=== PATIENT | female | born 1955 | race Caucasian/White ===

== ENCOUNTER → 2019-10-20 | Outpatient (CLI) | payer BC | END | disposition home or self-care (01) | LOC: CFH 07:30 | PROVIDERS: ATTEND Internal Medicine Cardiovascular Disease | DX: I25.89 Other forms of chronic ischemic heart disease (principal); Z82.49 Family history of ischemic heart disease and other diseases of the circulatory system | CPT/HCPCS: 78452; 93017; 93306; A9502 ==

== ENCOUNTER 2019-11-25 09:49 | Day surgery (SDC) | payer BC ==
[~2019-11-25] VITALS: Ht 165.1 cm; Wt 84.8 kg
[2019-11-25] MEDS ORDERED: SODIUM CHLORIDE 0.9% 1,000 ML IV ONE (10:30)
[2019-11-25] MEDS ORDERED: TRAZ-175 PO (10:38)
[2019-11-25] MEDS ORDERED: LORA-445 PO (10:39)
[2019-11-25] MEDS ORDERED: ESCI20TA10 PO (10:41)
[2019-11-25] MEDS ORDERED: PROG200C10 PO (10:42)
[2019-11-25] MEDS ORDERED: MONT10TA6 PO (10:42)
[2019-11-25] MEDS ORDERED: BRIO INHALER (10:43)
[2019-11-25] MEDS ORDERED: TIOT4MIS5 INH (10:45)
[2019-11-25] MEDS ORDERED: ALBU8.5H8 INH (10:46)
[2019-11-25 10:52] VITALS: BP 106/68
[2019-11-25 10:57] LABS: ANION GAP 4 mmol/L (5-15); CHLORIDE 110 mmol/L (98-107); CREATININE 0.76 mg/dL (0.55-1.02)
[2019-11-25 11:06] LABS: BASOPHILS # (AUTO) 0.05 x10^3/uL (0-0.1); BASOPHILS % (AUTO) 1 % (0-1); EOSINOPHILS # (AUTO) 0.07 x10^3/uL (0-0.4); EOSINOPHILS % (AUTO) 1 % (1-7); LYMPHOCYTES # (AUTO) 1.49 x10^3/uL (1-3.4); LYMPHOCYTES % (AUTO) 30 % (22-44); MD NO; MEAN CORPUSCULAR HEMOGLOBIN 30.6 pg (27.0-34.8); MEAN CORPUSCULAR HGB CONC 33.3 g/dL (32.4-35.8); MEAN CORPUSCULAR VOLUME 92.2 fL (80-100); MEAN PLATELET VOLUME 8.3 fL (7.4-10.4); MONOCYTES % (AUTO) 6 % (2-9); NEUTROPHILS # (AUTO) 3.13 x10^3/uL (1.8-6.8); NEUTROPHILS % (AUTO) 62 % (42-75); PLATELET COUNT 308 x10^3/uL (130-400); RED BLOOD COUNT 4.71 x10^6/uL (3.82-5.3); RED CELL DISTRIBUTION WIDTH 13.8 % (9.6-15.2)
[2019-11-25] MEDS ORDERED: MIDAZOLAM 1 MG/ML, 2ML ONE (12:41)
[2019-11-25] MEDS ORDERED: LIDOCAINE 1%, 20ML ONE (12:42)
[2019-11-25] MEDS ORDERED: FENTANYL PF 100 MCG/2ML ONE (12:42)
[2019-11-25] MEDS ORDERED: PROPOFOL 10 MG/ML, 50ML ONE (13:08)
[2019-11-25] MEDS ORDERED: PROPOFOL 10 MG/ML, 20ML ONE (13:08)
[2019-11-25] MEDS ORDERED: ONDANSETRON 2MG/ML, 2ML ONE (14:35)
[2019-11-25] MEDS ORDERED: ONDANSETRON 2MG/ML, 2ML IVPush ONE (15:00)
== END 2019-11-25 16:34 | disposition home or self-care (01) ==
LOC: CACL 09:49
PROVIDERS: ATTEND Internal Medicine Cardiovascular Disease
DX: R93.1 Abnormal findings on diagnostic imaging of heart and coronary circulation (principal); Z11.59 Encounter for screening for other viral diseases; I34.0 Nonrheumatic mitral (valve) insufficiency; F41.9 Anxiety disorder, unspecified; F32.9 Major depressive disorder, single episode, unspecified; J45.40 Moderate persistent asthma, uncomplicated; E66.9 Obesity, unspecified; G47.30 Sleep apnea, unspecified; Z98.51 Tubal ligation status; Z98.890 Other specified postprocedural states; Z88.0 Allergy status to penicillin; Z88.1 Allergy status to other antibiotic agents; Z79.899 Other long term (current) drug therapy; Z82.49 Family history of ischemic heart disease and other diseases of the circulatory system; Z68.31 Body mass index [BMI] 31.0-31.9, adult
CPT/HCPCS: 36415; 80048; 85025; 87635; 93312; 93321; 93325; 93458; C1760; C1769; C1894; J2250; J2405; J2704; J3010; Q9967

== ENCOUNTER 2020-02-12 04:28 | Inpatient (IN) | payer BC ==
[2020-02-11 14:07] LABS: BASOPHILS # (AUTO) 0.07 x10^3/uL (0-0.1); BASOPHILS % (AUTO) 1 % (0-1); EOSINOPHILS # (AUTO) 0.12 x10^3/uL (0-0.4); EOSINOPHILS % (AUTO) 2 % (1-7); LYMPHOCYTES # (AUTO) 1.79 x10^3/uL (1-3.4); LYMPHOCYTES % (AUTO) 28 % (22-44); MD NO; MEAN CORPUSCULAR HGB CONC 32.1 g/dL (32.4-35.8); MEAN CORPUSCULAR VOLUME 93.5 fL (80-100); MEAN PLATELET VOLUME 7.8 fL (7.4-10.4); MONOCYTES # (AUTO) 0.46 x10^3/uL (0.2-0.8); MONOCYTES % (AUTO) 7 % (2-9); NEUTROPHILS # (AUTO) 3.92 x10^3/uL (1.8-6.8); NEUTROPHILS % (AUTO) 62 % (42-75); PLATELET COUNT 308 x10^3/uL (130-400); RED CELL DISTRIBUTION WIDTH 14.2 % (9.6-15.2)
[2020-02-11 14:15] LABS: INTERNATIONAL NORMALIZED RATIO 0.94 (0.93-1.1); PROTHROMBIN TIME 9.7 Seconds (9.6-11.5)
[2020-02-11 14:16] LABS: ALANINE AMINOTRANSFERASE 28 U/L (12-78); ALBUMIN 3.7 g/dL (3.4-5.0); ANION GAP 6 mmol/L (5-15); CALCIUM 8.7 mg/dL (8.5-10.1); CHLORIDE 108 mmol/L (98-107)
[2020-02-11 14:19] LABS: ALKALINE PHOSPHATASE 76 U/L (45-117); BILIRUBIN,TOTAL 1.1 mg/dL (0.2-1.0); TOTAL PROTEIN 6.6 g/dL (6.4-8.2)
[2020-02-11 15:10] LABS: MICROSCOPIC NOT IND
[~2020-02-12] VITALS: Ht 165.1 cm; Wt 92.7 kg
[~2020-02-12 04:28] MED LIST: ALBU8.5H8 INH; BRIO INHALER; C,E,1CAP PO; ESCI20TA10 PO; FLUT1BLS INH; LACT1CAP5 PO; LIFE PO; LORA-439 PO; LORA-445 PO; MAGN100T PO; MONT10TA6 PO; PROG200C10 PO; TIOT4MIS5 INH; TRAZ-175 PO; [UNRECOGNIZED DRUG - OTHER] PO
[2020-02-12 04:55] VITALS: BP_SYST 116; BP_SYST 121; BP_DIAS 74; BP_DIAS 81
[2020-02-12] MEDS ORDERED: INSULIN LISPRO 100 UNITS/ML, PEN SQ-INSULIN SCH (05:00)
[2020-02-12] MEDS ORDERED: DO NOT GIVE MC SCH (05:00)
[2020-02-12] MEDS ORDERED: CHLORHEXIDINE 15 ML UDC MM PRN (05:00)
[2020-02-12] MEDS: MUPIROCIN OINT 2%, 22GM TP SCH ×2 (05:35→20:30)
[2020-02-12] MEDS ORDERED: FENTANYL PF 250 MCG/5ML ONE ×4 (07:04)
[2020-02-12] MEDS ORDERED: MIDAZOLAM 10MG/2 ML ONE (07:04)
[2020-02-12] MEDS ORDERED: PHENYLEPHRINE 50 MG in SODIUM CHLORIDE 0.9% 245 ML IV PRN ×2 (07:30→10:56)
[2020-02-12] MEDS ORDERED: ALBUMIN HUMAN 5% 500 ML IV PRN (07:30)
[2020-02-12] MEDS ORDERED: VANCOMYCIN 1,200 MG in SODIUM CHLORIDE 0.9% 250 ML IV PRN (07:30)
[2020-02-12] MEDS ORDERED: MANNITOL PMX 20% 500 ML IVPB PRN (07:30)
[2020-02-12] MEDS ORDERED: REGULAR INSULIN 100 UNITS in SODIUM CHLORIDE 0.9% 99 ML IV PRN ×2 (07:30→10:56)
[2020-02-12] MEDS ORDERED: POTASSIUM CHLORIDE 80 MEQ, SODIUM BICARBONATE 8.4% 10 MEQ, MAGNESIUM SULFATE 0.5 GM, LI... IV PRN (07:30)
[2020-02-12] MEDS ORDERED: EPINEPHRINE 5 MG in SODIUM CHLORIDE 0.9% 245 ML IV PRN ×2 (07:30→11:00)
[2020-02-12] MEDS ORDERED: DEXMEDETOMIDINE 200 MCG in SODIUM CHLORIDE 0.9% 48 ML IV PRN ×2 (07:30→10:56)
[2020-02-12] MEDS ORDERED: AMINOCAPROIC ACID 250 MG/ML, 20ML ONE ×2 (08:41)
[2020-02-12] MEDS ORDERED: PROTAMINE SULFATE 10 MG/ML, 25ML ONE ×2 (08:41)
[2020-02-12] MEDS ORDERED: PROPOFOL 10 MG/ML, 20ML ONE (08:41)
[2020-02-12] MEDS ORDERED: ROCURONIUM 10MG/ML,5ML ONE ×2 (08:41)
[2020-02-12] MEDS: SODIUM CHLORIDE FLUSH 10ML SYR IVF SCH ×3 (09:00→20:26)
[2020-02-12] MEDS ORDERED: ALBUMIN HUMAN 25% 50 ML ONE (10:27)
[2020-02-12] MEDS ORDERED: methylPREDNISolone SOD SUCC 125 MG/2 ML ONE (10:27)
[2020-02-12] MEDS ORDERED: SODIUM BICARBONATE 1 MEQ/ML, 50ML VIAL ONE (10:27)
[2020-02-12] MEDS ORDERED: HEPARIN 1,000 UNITS/ML, 30ML ONE (10:27)
[2020-02-12 10:45] LABS: GLUCOSE BY BLOOD GAS ANALYZER 131 mg/dL (70-110); HEMOGLOBIN BY BLOOD GAS ANALYZ 12.6 g/dL (14.0-18.0); POTASSIUM BY BLOOD GAS ANALYZR 3.4 mmol/L (3.6-5.5)
[2020-02-12] MEDS ORDERED: DOBUTAMINE 250 MG in SODIUM CHLORIDE 0.9% 230 ML IV PRN (10:56)
[2020-02-12] MEDS ORDERED: NITROGLYCERIN/D5W PMX 250 ML IV PRN (10:56)
[2020-02-12] MEDS ORDERED: SODIUM CHLORIDE 0.9% 1,000 ML IV PRN (10:56)
[2020-02-12] MEDS ORDERED: VASOPRESSIN 20 UNIT in SODIUM CHLORIDE 0.9% 99 ML IV PRN (10:56)
[2020-02-12 10:57] LABS: INTERNATIONAL NORMALIZED RATIO 1.12 (0.93-1.1); PROTHROMBIN TIME 11.6 Seconds (9.6-11.5)
[2020-02-12] MEDS ORDERED: DEXTROSE 50%, 50ML SYRINGE IVPush PRN (11:00)
[2020-02-12] MEDS ORDERED: INSULIN REGULAR 100 UNITS/ML, 3ML VIAL IVPush PRN (11:00)
[2020-02-12] MEDS ORDERED: ONDANSETRON 2MG/ML, 2ML IVPush PRN (11:00)
[2020-02-12] MEDS ORDERED: ACETAMINOPHEN 650 MG SUPP PR PRN (11:00)
[2020-02-12] MEDS ORDERED: BISACODYL 10 MG SUPP PR PRN (11:00)
[2020-02-12] MEDS ORDERED: SODIUM BICARB 8.4%, 50ML SYRINGE IV PRN (11:00)
[2020-02-12] MEDS ORDERED: morphine SULFATE 10 MG/ML, 1ML IVPush PRN (11:00)
[2020-02-12] MEDS ORDERED: GLUCAGON 1 MG IM PRN (11:00)
[2020-02-12] MEDS ORDERED: PROCHLORPERAZINE 5 MG/ML, 2ML IVPush PRN (11:00)
[2020-02-12] MEDS ORDERED: BISACODYL 5 MG EC TABLET PO PRN (11:00)
[2020-02-12] MEDS ORDERED: DEXTROSE 4 GM TAB.CHEW PO PRN (11:00)
[2020-02-12] MEDS ORDERED: MIDAZOLAM 1 MG/ML, 5ML IVPush PRN (11:00)
[2020-02-12] MEDS: DOCUSATE 100 MG CAPSULE PO SCH ×2 (11:26→20:30)
[2020-02-12] MEDS: INSULIN LISPRO 100 UNITS/ML, PEN SQ-INSULIN SCH ×3 (11:26→20:47)
[2020-02-12] MEDS: LACTATED RINGERS 1,000 ML IV PRN ×2 (11:32→15:41)
[2020-02-12] MEDS: MAGNESIUM SULFATE 1 GM in SODIUM CHLORIDE 0.9% 100 ML IVPB SCH (11:39)
[2020-02-12] MEDS ORDERED: POTASSIUM CHLORIDE 30 MEQ in SODIUM CHLORIDE 0.9% 100 ML IV ONE (12:30)
[2020-02-12] MEDS: KSCALE TO 4.5 IV SCH ×3 (12:43→23:00)
[2020-02-12] MEDS: OXYcodone IR 5MG TABLET PO PRN ×3 (15:29→22:37)
[2020-02-12] MEDS ORDERED: LACTATED RINGERS 1,000 ML IVBOLUS ONE (16:30)
[2020-02-12] MEDS ORDERED: ALBUMIN HUMAN 5% 500 ML IV ONE (16:30)
[2020-02-12 17:21] LABS: ANION GAP 6 mmol/L (5-15); CHLORIDE 118 mmol/L (98-107); CREATININE 0.62 mg/dL (0.55-1.02)
[2020-02-12 17:23] LABS: CALCIUM 7.4 mg/dL (8.5-10.1)
[2020-02-12] MEDS ORDERED: KETOROLAC 30 MG/1 ML IVPush PRN (18:00)
[2020-02-12] MEDS: HYDROcodone/APAP 5/325 TABLET PO PRN (18:30)
[2020-02-12] MEDS: VANCOMYCIN 1,300 MG in SODIUM CHLORIDE 0.9% 250 ML IVPB SCH (20:04)
[2020-02-12] MEDS: TRAZODONE 100MG TABLET PO SCH (20:29)
[2020-02-12] MEDS: ACETAMINOPHEN 325 MG TABLET PO PRN (20:29)
[2020-02-12] MEDS: LORazepam 0.5MG TABLET PO PRN (20:29)
[2020-02-13] MEDS: HYDROcodone/APAP 5/325 TABLET PO PRN ×4 (01:00→21:06)
[2020-02-13] MEDS: OXYcodone IR 5MG TABLET PO PRN ×4 (03:54→22:56)
[2020-02-13 04:00] VITALS: BP 92/51
[2020-02-13] MEDS: LORazepam 0.5MG TABLET PO PRN ×3 (04:14→20:44)
[2020-02-13 04:42] LABS: ALBUMIN 3.4 g/dL (3.4-5.0); ANION GAP 4 mmol/L (5-15); CHLORIDE 113 mmol/L (98-107)
[2020-02-13] MEDS: KSCALE TO 4.5 IV SCH (04:55)
[2020-02-13 06:17] LABS: MEAN CORPUSCULAR HEMOGLOBIN 30.1 pg (27.0-34.8); MEAN CORPUSCULAR HGB CONC 32.1 g/dL (32.4-35.8); MEAN CORPUSCULAR VOLUME 93.6 fL (80-100); MEAN PLATELET VOLUME 8.3 fL (7.4-10.4); PLATELET COUNT 247 x10^3/uL (130-400); RED BLOOD COUNT 3.71 x10^6/uL (3.82-5.3); RED CELL DISTRIBUTION WIDTH 14.5 % (9.6-15.2)
[2020-02-13] MEDS: INSULIN LISPRO 100 UNITS/ML, PEN SQ-INSULIN SCH ×4 (07:00→20:43)
[2020-02-13] MEDS ORDERED: KETOROLAC 30 MG/1 ML ONE (07:51)
[2020-02-13] MEDS ORDERED: KETOROLAC 30 MG/1 ML IM SCH (08:00)
[2020-02-13 08:01] LABS: MD YES
[2020-02-13 08:02] LABS: BAND#(MANUAL) 0.15 x10^3/uL; BANDS%(MANUAL) 1 % (0-7); LYMPH#(MANUAL) 0.46 x10^3/uL (1-3.4); LYMPHS% (MANUAL) 3 % (22-44); METAMYELOCYTES# (MANUAL) 0.15 x10^3/uL (0-0); METAMYELOCYTES% (MANUAL) 1 % (0-1); MONOS#(MANUAL) 1.08 x10^3/uL (0.3-2.7); MONOS% (MANUAL) 7 % (2-9); SEG#(MANUAL) 13.55 x10^3/uL (1.8-6.8); SEGS% (MANUAL) 88 % (42-75)
[2020-02-13 08:03] LABS: <PLATELET ESTIMATE> ADEQUATE; <PLT MORPHOLOGY> NORMAL PLT MORPH; <RBC MORPHOLOGY> NORMAL
[2020-02-13] MEDS: KETOROLAC 30 MG/1 ML IV SCH ×2 (08:47→18:39)
[2020-02-13] MEDS: MUPIROCIN OINT 2%, 22GM TP SCH ×2 (08:49→20:43)
[2020-02-13] MEDS: SODIUM CHLORIDE FLUSH 10ML SYR IVF SCH ×4 (08:49→20:43)
[2020-02-13] MEDS: MUPIROCIN OINT 2%, 22GM NAS SCH ×2 (08:49→20:43)
[2020-02-13] MEDS: VANCOMYCIN 1,300 MG in SODIUM CHLORIDE 0.9% 250 ML IVPB SCH (08:49)
[2020-02-13] MEDS: WARFARIN BIOPROSTHETIC VALVE PROTOCOL 2-3 XX SCH (09:00)
[2020-02-13] MEDS ORDERED: LORazepam 1MG TABLET ONE ×2 (10:33→20:36)
[2020-02-13] MEDS: DOCUSATE 100 MG CAPSULE PO SCH ×2 (10:41→20:44)
[2020-02-13] MEDS: ASPIRIN 81 MG TABLET EC PO SCH (10:41)
[2020-02-13] MEDS: LIDODERM 5% PATCH TD SCH (10:42)
[2020-02-13 11:06] LABS: INTERNATIONAL NORMALIZED RATIO 1.04 (0.93-1.1); PROTHROMBIN TIME 10.7 Seconds (9.6-11.5)
[2020-02-13] MEDS: MAGNESIUM SULFATE 1 GM in SODIUM CHLORIDE 0.9% 100 ML IVPB SCH (12:31)
[2020-02-13] MEDS: ACETAMINOPHEN 325 MG TABLET PO PRN (17:57)
[2020-02-13] MEDS ORDERED: WARFARIN 5 MG TABLET PO-COUM SCH (18:00)
[2020-02-13] MEDS ORDERED: LACTATED RINGERS 500 ML IVBOLUS ONE (20:00)
[2020-02-13] MEDS: CHLORHEXIDINE 15 ML UDC MM SCH (20:43)
[2020-02-13] MEDS: TRAZODONE 100MG TABLET PO SCH (20:44)
[2020-02-14] MEDS: KETOROLAC 30 MG/1 ML IV SCH ×4 (01:07→21:45)
[2020-02-14 04:00] VITALS: BP 99/50
[2020-02-14] MEDS: HYDROcodone/APAP 5/325 TABLET PO PRN ×2 (04:03→16:08)
[2020-02-14 04:19] LABS: INTERNATIONAL NORMALIZED RATIO 0.97 (0.93-1.1)
[2020-02-14 04:20] LABS: ANION GAP 6 mmol/L (5-15); CALCIUM 7.8 mg/dL (8.5-10.1); CHLORIDE 106 mmol/L (98-107); CREATININE 0.69 mg/dL (0.55-1.02)
[2020-02-14 04:34] LABS: BASOPHILS # (AUTO) 0.02 x10^3/uL (0-0.1); BASOPHILS % (AUTO) 0 % (0-1); EOSINOPHILS # (AUTO) 0.13 x10^3/uL (0-0.4); EOSINOPHILS % (AUTO) 1 % (1-7); LYMPHOCYTES # (AUTO) 1.12 x10^3/uL (1-3.4); LYMPHOCYTES % (AUTO) 11 % (22-44); MD NO; MEAN CORPUSCULAR HEMOGLOBIN 30.6 pg (27.0-34.8); MEAN CORPUSCULAR HGB CONC 33.1 g/dL (32.4-35.8); MEAN CORPUSCULAR VOLUME 92.5 fL (80-100); MONOCYTES # (AUTO) 0.66 x10^3/uL (0.2-0.8); MONOCYTES % (AUTO) 7 % (2-9); NEUTROPHILS # (AUTO) 7.95 x10^3/uL (1.8-6.8); NEUTROPHILS % (AUTO) 80 % (42-75); PLATELET COUNT 156 x10^3/uL (130-400); RED BLOOD COUNT 3.32 x10^6/uL (3.82-5.3); RED CELL DISTRIBUTION WIDTH 14.7 % (9.6-15.2)
[2020-02-14] MEDS: INSULIN LISPRO 100 UNITS/ML, PEN SQ-INSULIN SCH ×4 (07:00→21:37)
[2020-02-14] MEDS: LIDODERM 5% PATCH TD SCH (08:30)
[2020-02-14] MEDS ORDERED: LORazepam 1MG TABLET ONE (08:37)
[2020-02-14] MEDS: DOCUSATE 100 MG CAPSULE PO SCH ×2 (08:39→21:47)
[2020-02-14] MEDS: CHLORHEXIDINE 15 ML UDC MM SCH ×2 (08:39→21:52)
[2020-02-14] MEDS: SODIUM CHLORIDE FLUSH 10ML SYR IVF SCH ×4 (08:39→21:46)
[2020-02-14] MEDS: POTASSIUM CHLORIDE 20 MEQ TAB.ER.PRT PO SCH (08:39)
[2020-02-14] MEDS: ASPIRIN 81 MG TABLET EC PO SCH (08:39)
[2020-02-14] MEDS: MUPIROCIN OINT 2%, 22GM NAS SCH ×2 (08:44→21:52)
[2020-02-14] MEDS: FUROSEMIDE 40 MG/4 ML IV SCH (08:44)
[2020-02-14] MEDS: MUPIROCIN OINT 2%, 22GM TP SCH ×2 (08:44→21:52)
[2020-02-14] MEDS: LORazepam 0.5MG TABLET PO PRN (08:45)
[2020-02-14] MEDS: WARFARIN BIOPROSTHETIC VALVE PROTOCOL 2-3 XX SCH (09:00)
[2020-02-14] MEDS: DIPHENHYDRAMINE 25 MG CAPSULE PO PRN ×2 (09:56→21:52)
[2020-02-14] MEDS: WARFARIN MODERAT DOSE PROTOCOL XX SCH (12:00)
[2020-02-14] MEDS ORDERED: MAGNESIUM SULFATE PMX 2GM/50ML 0 ML ONE (12:07)
[2020-02-14] MEDS: MAGNESIUM SULFATE 1 GM in SODIUM CHLORIDE 0.9% 100 ML IVPB SCH (12:47)
[2020-02-14 15:44] VITALS: BP 91/59
[2020-02-14 16:09] VITALS: BP 100/67
[2020-02-14] MEDS ORDERED: WARFARIN 7.5 MG TABLET PO-COUM SCH (18:00)
[2020-02-14 18:29] VITALS: BP 82/57
[2020-02-14] MEDS: OXYcodone IR 5MG TABLET PO PRN (18:44)
[2020-02-14] MEDS: TRAZODONE 100MG TABLET PO SCH (21:46)
[2020-02-14] MEDS: ESCITALOPRAM 10MG TABLET PO SCH (21:46)
[2020-02-15 02:43] VITALS: BP 100/67
[2020-02-15] MEDS: KETOROLAC 30 MG/1 ML IV SCH ×4 (02:46→20:20)
[2020-02-15 03:25] LABS: BASOPHILS # (AUTO) 0.03 x10^3/uL (0-0.1); BASOPHILS % (AUTO) 1 % (0-1); EOSINOPHILS # (AUTO) 0.13 x10^3/uL (0-0.4); EOSINOPHILS % (AUTO) 2 % (1-7); LYMPHOCYTES # (AUTO) 1.27 x10^3/uL (1-3.4); LYMPHOCYTES % (AUTO) 18 % (22-44); MD NO; MEAN CORPUSCULAR HEMOGLOBIN 30.1 pg (27.0-34.8); MEAN CORPUSCULAR HGB CONC 32.4 g/dL (32.4-35.8); MEAN CORPUSCULAR VOLUME 92.9 fL (80-100); MEAN PLATELET VOLUME 8.1 fL (7.4-10.4); MONOCYTES # (AUTO) 0.52 x10^3/uL (0.2-0.8); MONOCYTES % (AUTO) 8 % (2-9); NEUTROPHILS # (AUTO) 4.94 x10^3/uL (1.8-6.8); NEUTROPHILS % (AUTO) 72 % (42-75); PLATELET COUNT 162 x10^3/uL (130-400); PROTHROMBIN TIME 10.3 Seconds (9.6-11.5); RED BLOOD COUNT 3.27 x10^6/uL (3.82-5.3); RED CELL DISTRIBUTION WIDTH 14.4 % (9.6-15.2)
[2020-02-15 03:27] LABS: ANION GAP 5 mmol/L (5-15); CHLORIDE 109 mmol/L (98-107); CREATININE 0.62 mg/dL (0.55-1.02)
[2020-02-15] MEDS: LORazepam 0.5MG TABLET PO PRN ×2 (03:27→20:20)
[2020-02-15 06:45] VITALS: BP 102/69
[2020-02-15] MEDS: INSULIN LISPRO 100 UNITS/ML, PEN SQ-INSULIN SCH (08:35)
[2020-02-15] MEDS: FUROSEMIDE 40 MG/4 ML IV SCH (08:36)
[2020-02-15] MEDS: CHLORHEXIDINE 15 ML UDC MM SCH (08:36)
[2020-02-15] MEDS: MUPIROCIN OINT 2%, 22GM TP SCH ×2 (08:37→20:21)
[2020-02-15] MEDS: WARFARIN BIOPROSTHETIC VALVE PROTOCOL 2-3 XX SCH (08:38)
[2020-02-15] MEDS: ASPIRIN 81 MG TABLET EC PO SCH (08:41)
[2020-02-15] MEDS: DOCUSATE 100 MG CAPSULE PO SCH ×2 (08:41→20:20)
[2020-02-15] MEDS: POTASSIUM CHLORIDE 20 MEQ TAB.ER.PRT PO SCH (08:41)
[2020-02-15] MEDS: MUPIROCIN OINT 2%, 22GM NAS SCH ×2 (08:42→20:04)
[2020-02-15] MEDS: SODIUM CHLORIDE FLUSH 10ML SYR IVF SCH ×4 (08:42→20:20)
[2020-02-15] MEDS: LIDODERM 5% PATCH TD SCH (08:46)
[2020-02-15] MEDS: HYDROcodone/APAP 5/325 TABLET PO PRN ×2 (09:54→17:30)
[2020-02-15] MEDS: WARFARIN MODERAT DOSE PROTOCOL XX SCH (12:38)
[2020-02-15] MEDS: OXYcodone IR 5MG TABLET PO PRN (12:40)
[2020-02-15 12:53] VITALS: BP 101/70
[2020-02-15] MEDS ORDERED: WARFARIN 7.5 MG TABLET PO-COUM ONE (18:00)
[2020-02-15 19:42] VITALS: BP 120/77
[2020-02-15] MEDS: ESCITALOPRAM 10MG TABLET PO SCH (20:20)
[2020-02-15] MEDS: TRAZODONE 100MG TABLET PO SCH (20:21)
[2020-02-16 00:44] VITALS: BP 104/67
[2020-02-16] MEDS: KETOROLAC 30 MG/1 ML IV SCH ×4 (02:56→19:54)
[2020-02-16 03:31] LABS: BASOPHILS # (AUTO) 0.04 x10^3/uL (0-0.1); BASOPHILS % (AUTO) 1 % (0-1); EOSINOPHILS # (AUTO) 0.18 x10^3/uL (0-0.4); EOSINOPHILS % (AUTO) 3 % (1-7); LYMPHOCYTES # (AUTO) 1.35 x10^3/uL (1-3.4); LYMPHOCYTES % (AUTO) 24 % (22-44); MD NO; MEAN CORPUSCULAR HEMOGLOBIN 30.8 pg (27.0-34.8); MEAN CORPUSCULAR HGB CONC 33.5 g/dL (32.4-35.8); MEAN CORPUSCULAR VOLUME 92.1 fL (80-100); MEAN PLATELET VOLUME 8.1 fL (7.4-10.4); MONOCYTES % (AUTO) 7 % (2-9); NEUTROPHILS # (AUTO) 3.76 x10^3/uL (1.8-6.8); NEUTROPHILS % (AUTO) 65 % (42-75); PLATELET COUNT 212 x10^3/uL (130-400); RED BLOOD COUNT 3.32 x10^6/uL (3.82-5.3); RED CELL DISTRIBUTION WIDTH 13.9 % (9.6-15.2)
[2020-02-16 03:33] LABS: INTERNATIONAL NORMALIZED RATIO 1.33 (0.93-1.1); PROTHROMBIN TIME 13.7 Seconds (9.6-11.5)
[2020-02-16 03:34] LABS: ANION GAP 3 mmol/L (5-15); CALCIUM 8.2 mg/dL (8.5-10.1); CHLORIDE 112 mmol/L (98-107); CREATININE 0.65 mg/dL (0.55-1.02)
[2020-02-16] MEDS: OXYcodone IR 5MG TABLET PO PRN (04:19)
[2020-02-16] MEDS: LORazepam 0.5MG TABLET PO PRN ×2 (05:04→21:40)
[2020-02-16 06:45] VITALS: BP 108/71
[2020-02-16] MEDS ORDERED: ALBUTEROL HFA 90 MCG/SPRAY INH PRN (08:00)
[2020-02-16] MEDS ORDERED: WARF-36 PO (08:45)
[2020-02-16] MEDS ORDERED: METO2.5T PO (08:45)
[2020-02-16] MEDS ORDERED: ASPI81TA45 PO (08:45)
[2020-02-16] MEDS ORDERED: HYDR-3237 PO (08:45)
[2020-02-16] MEDS ORDERED: FURO40TA6 PO (08:45)
[2020-02-16] MEDS ORDERED: POTA20TA6 PO (08:45)
[2020-02-16] MEDS: ASPIRIN 81 MG TABLET EC PO SCH (09:17)
[2020-02-16] MEDS: POTASSIUM CHLORIDE 20 MEQ TAB.ER.PRT PO SCH (09:17)
[2020-02-16] MEDS: DOCUSATE 100 MG CAPSULE PO SCH ×2 (09:17→21:39)
[2020-02-16] MEDS: FUROSEMIDE 40 MG/4 ML IV SCH (09:17)
[2020-02-16] MEDS: HYDROcodone/APAP 5/325 TABLET PO PRN ×3 (09:17→21:41)
[2020-02-16] MEDS: MUPIROCIN OINT 2%, 22GM NAS SCH ×2 (09:18→21:39)
[2020-02-16] MEDS: WARFARIN BIOPROSTHETIC VALVE PROTOCOL 2-3 XX SCH (09:18)
[2020-02-16] MEDS: LIDODERM 5% PATCH TD SCH (09:32)
[2020-02-16] MEDS: METOLAZONE 2.5 MG TABLET PO SCH (09:32)
[2020-02-16] MEDS: MUPIROCIN OINT 2%, 22GM TP SCH ×2 (09:32→21:00)
[2020-02-16] MEDS: WARFARIN MODERAT DOSE PROTOCOL XX SCH (12:03)
[2020-02-16 13:25] VITALS: BP 111/74
[2020-02-16] MEDS ORDERED: WARFARIN 5 MG TABLET PO-COUM ONE (17:20)
[2020-02-16] MEDS ORDERED: WARFARIN 10 MG TABLET PO-COUM ONE (18:00)
[2020-02-16 19:47] VITALS: BP 119/80
[2020-02-16] MEDS ORDERED: MONTELUKAST 10 MG TABLET PO SCH (21:00)
[2020-02-16] MEDS ORDERED: ESCITALOPRAM 10MG TABLET PO SCH (21:00)
[2020-02-16] MEDS ORDERED: TRAZODONE 100MG TABLET PO SCH (21:00)
[2020-02-16] MEDS ORDERED: FLUTICASONE/VILANTEROL 200-25MCG/INH INH SCH (21:00)
[2020-02-16] MEDS: ESCITALOPRAM 10MG TABLET PO SCH (21:39)
[2020-02-16] MEDS: TRAZODONE 100MG TABLET PO SCH (21:40)
[2020-02-17 01:54] VITALS: BP 117/69
[2020-02-17] MEDS: HYDROcodone/APAP 5/325 TABLET PO PRN ×3 (01:56→10:23)
[2020-02-17] MEDS: KETOROLAC 30 MG/1 ML IV SCH ×2 (01:56→08:00)
[2020-02-17 04:51] LABS: INTERNATIONAL NORMALIZED RATIO 1.95 (0.93-1.1); PROTHROMBIN TIME 20.2 Seconds (9.6-11.5)
[2020-02-17 04:53] LABS: ANION GAP 6 mmol/L (5-15); CALCIUM 8.8 mg/dL (8.5-10.1); CHLORIDE 107 mmol/L (98-107); CREATININE 0.78 mg/dL (0.55-1.02)
[2020-02-17 04:55] LABS: BASOPHILS # (AUTO) 0.02 x10^3/uL (0-0.1); BASOPHILS % (AUTO) 0 % (0-1); EOSINOPHILS # (AUTO) 0.24 x10^3/uL (0-0.4); EOSINOPHILS % (AUTO) 4 % (1-7); LYMPHOCYTES # (AUTO) 1.28 x10^3/uL (1-3.4); LYMPHOCYTES % (AUTO) 19 % (22-44); MD NO; MEAN CORPUSCULAR HGB CONC 32.6 g/dL (32.4-35.8); MEAN CORPUSCULAR VOLUME 92.2 fL (80-100); MEAN PLATELET VOLUME 7.7 fL (7.4-10.4); MONOCYTES # (AUTO) 0.49 x10^3/uL (0.2-0.8); MONOCYTES % (AUTO) 7 % (2-9); NEUTROPHILS # (AUTO) 4.84 x10^3/uL (1.8-6.8); NEUTROPHILS % (AUTO) 70 % (42-75); PLATELET COUNT 290 x10^3/uL (130-400); RED BLOOD COUNT 3.63 x10^6/uL (3.82-5.3); RED CELL DISTRIBUTION WIDTH 14.1 % (9.6-15.2)
[2020-02-17 07:00] VITALS: BP 113/69
[2020-02-17] MEDS: DOCUSATE 100 MG CAPSULE PO SCH (08:08)
[2020-02-17] MEDS: ASPIRIN 81 MG TABLET EC PO SCH (08:09)
[2020-02-17] MEDS: POTASSIUM CHLORIDE 20 MEQ TAB.ER.PRT PO SCH (08:09)
[2020-02-17] MEDS: METOLAZONE 2.5 MG TABLET PO SCH (08:09)
[2020-02-17] MEDS: FUROSEMIDE 40 MG/4 ML IV SCH (08:09)
[2020-02-17] MEDS: LIDODERM 5% PATCH TD SCH (08:10)
[2020-02-17] MEDS: MUPIROCIN OINT 2%, 22GM NAS SCH (08:10)
[2020-02-17] MEDS: MUPIROCIN OINT 2%, 22GM TP SCH (08:12)
[2020-02-17] MEDS: WARFARIN BIOPROSTHETIC VALVE PROTOCOL 2-3 XX SCH (09:00)
[2020-02-17] MEDS ORDERED: WARFARIN 5 MG TABLET PO-COUM ONE (18:00)
== END 2020-02-17 11:40 | disposition home health service (06) | DRG 219 ==
LOC: 5SO 04:28 → CSU 07:27 → 5SO 02-14 15:37 → DCLOUNGE 02-17 11:21
PROVIDERS: ADMIT Thoracic Surgery (Cardiothoracic Vascular Surgery); ATTEND Thoracic Surgery (Cardiothoracic Vascular Surgery)
PROC: B246ZZ4 Ultrasonography of Right and Left Heart, Transesophageal (ICD-10-PCS; 2020-02-12)
PROC: 02UG0JZ Supplement Mitral Valve with Synthetic Substitute, Open Approach (ICD-10-PCS; principal; 2020-02-12 07:30)
DX: I34.0 Nonrheumatic mitral (valve) insufficiency (principal); I46.9 Cardiac arrest, cause unspecified; J98.11 Atelectasis; F32.9 Major depressive disorder, single episode, unspecified; F41.9 Anxiety disorder, unspecified; J45.909 Unspecified asthma, uncomplicated
CPT/HCPCS: 36415; 36600; J3490; S0017; 71045; 71046; 80048; 80053; 81003; 82040; 82330; 82800; 82803; 82810; 82947; 82962; 83036; 83735; 84132; 84295; 85014; 85018; 85025; 85049; 85347; 85610; 85730; 86850; 86900; 86923; 87081; 87635; 93005; 93312; 93321; 93325; 93880; 94002; 94150; 94640; G0378; J0171; J1644; J1815; J1885; J1940; J2250; J2704; J2720; J3010; J3370; J3475; J3480; J7120; P9045; P9047; C1751; J2270; J2370; J2930; J7050; Q0163

== ENCOUNTER → 2020-04-27 | Outpatient (CLI) | payer BC ==
[~2020-04-27] MED LIST changes: +ASPI81TA45 PO; +FURO40TA6 PO; +HYDR-3237 PO; +METO2.5T PO; +POTA20TA6 PO; +WARF-36 PO
== END | disposition home or self-care (01) ==
LOC: CVU 07:23
PROVIDERS: ATTEND Internal Medicine Cardiovascular Disease
DX: I34.0 Nonrheumatic mitral (valve) insufficiency (principal); R07.9 Chest pain, unspecified
CPT/HCPCS: 93306